=== PATIENT | male | born 1955 | race Caucasian/White ===

== ENCOUNTER 2018-12-05 11:24 | Inpatient (IN) | payer OTHER ==
[2018-12-05 13:44] VITALS: BMI 29.5
--- NOTE | 2018-12-05 15:37 | HP ---
CIWA Score Nausea/Vomitin Muscle Tremors: 3 Anxiety: 3 Agitation: 3 Paroxysmal Sweats: 1-Minimal Palms Moist Orientation: 0-Oriented Tacttile Disturbances: 0-None Auditory Disturbances: 0-None Visual Disturbances: 0-None Headache: 0-None Present CIWA-Ar Total Score: 13 - Admission Criteria OASAS Guidelines: Admission for Medically Managed Detox: Requires at least one of the followin. CIWA greater than 12 2. Seizures within the past 24 hours 3. Delirium tremens within the past 24 hours 4. Hallucinations within the past 24 hours 5. Acute intervention needed for co occurring medical disorder 6. Acute intervention needed for co occurring psychiatric disorder 7. Severe withdrawal that cannot be handled at a lower level of care (continued vomiting, continued diarrhea, abnormal vital signs) requiring intravenous medication and/or fluids 8. Admission ROS [facility] [place] [facility] [employer] [facility] Chief Complaint: detox from alcohol Allergies/Adverse Reactions: Allergies Allergy/AdvReac Type Severity Reaction Status Date / Time No Known Allergies Allergy Verified 12/05/18 13:25 History of Present Illness: Mr. Rush is a 63yo male with alcohol use disorder, UT s/p stent 2018, and HLD who presents for detox from alcohol. He reports drinking 1-1.5 pints liquor daily for the last 1-1.5 years. He reports drinking socially prior. His last reported drink was 8:00am today. He denies blackouts but may have had 1 seizure in the past. He denies any other drug use. Pt takes Ativan PRN for anxiety and tremors. He lives at home in [place] with . Pt reports tremors, agitation, dizziness, dry heaving. He denies chills, PEDROZA, diarrhea, and hallucinations. PMH: alcohol use disorder, UT s/p stent 2018, and HLD surgical hx: hernia, knee meds: Brillinta, ASA, metoprolol, Nexium, Lipitor, Flomax, ramipril NKDA family hx: father-alcohol use, mother-CHF - Ebola screening Have you traveled outside of the country in the last 21 days: No (N) Have you had contact with anyone from an Ebola affected area: No Do you have a fever: No - Review of Systems Constitutional: No Symptoms Reported, Weakness EENT: reports: No Symptoms Reported Respiratory: denies: Shortness of Breath Cardiac: denies: Chest Pain GI: denies: Nausea, Vomiting, Abdominal cramping : reports: No Symptoms Reported Musculoskeletal: reports: No Symptoms Reported Integumentary: reports: No Symptoms Reported Neuro: reports: Tingling, Dizziness. denies: Headache Endocrine: reports: No Symptoms Reported Hematology: reports: No Symptoms Reported Psychiatric: reports: Judgement Intact, Mood/Affect Appropiate, Orientated x3 Patient History - Patient Medical History Hx Asthma: No Hx Chronic Obstructive Pulmonary Disease (COPD): No Hx Congestive Heart Failure: No Hx Hypertension: No Hx Hypercholesterolemia: Yes HX Cerebrovascular Accident: No Hx Seizures: Yes Hx Diabetes: No - Patient Surgical History Hx Abdominal Surgery: Yes (hernia) Hx Orthopedic Surgery: Yes (knee) - Smoking Cessation Smoking history: Never smoked - Substances abused Alcohol Substance route: Oral Frequency: Daily Amount used: 1 1/2 pints of vodka Age of first use: 19 Date of last use: 12/05/18 Family Disease History - Family Disease History Family Disease History: Heart Disease: Mother, Other: Father (alcohol use disorder) Admission Physical Exam [facility] - Vital Signs Vital Signs: Vital Signs - 24 hr 12/05/18 13:19 Temperature 97.9 F Pulse Rate 119 H Respiratory 18 Rate Blood Pressure 109/74 - Physical General Appearance: Yes: No Apparent Distress, Alcohol on Breath, Irritable HEENTM: Yes: Normocephalic, JULITA Respiratory: Yes: Lungs Clear, No Respiratory Distress Neck: Yes: Within Normal Limits Cardiology: Yes: Regular Rhythm, Regular Rate Abdominal: Yes: Non Tender, Increased Bowel Sounds Musculoskeletal: Yes: Within Normal Limits Extremities: Yes: Within Normal Limits Neurological: Yes: information security officer II-XII NML intact, Fully Oriented, Alert, Motor Strength 5/5, Normal Mood/Affect Integumentary: Yes: Within Normal Limits - Diagnostic (1) Alcohol use disorder Current Visit: Yes Status: Chronic (2) Hyperlipidemia Current Visit: Yes Status: Chronic Qualifiers: Hyperlipidemia type: unspecified Qualified Code(s): E78.5 - Hyperlipidemia , unspecified (3) Myocardial infarct, old Current Visit: Yes Status: Chronic Cleared for Admission [facility] - Detox or Rehab [facility] Level of Care: Medically Managed Breathalyzer - Breathalyzer Breathalyzer: 0.204 Urine Drug Screen - Test Device Lot number: [id number] Expiration date: 09/19/20 - Control Is test valid?: Yes - Results Drug screen NEGATIVE: No Urine drug screen results: BZO-Benzodiazepines Inpatient Rehab Admission - Rehab Decision to Admit Inpatient rehab admission?: No
[2018-12-05] MEDS ORDERED: MENTHOL/PHENOL 1 EACH UD MM PRN (15:49)
[2018-12-05] MEDS ORDERED: BISMUTH SUBSALICYLATE 524 MG/30 ML UD PO PRN (15:49)
[2018-12-05] MEDS ORDERED: IBUPROFEN 400 MG TABLET (FP) PO PRN (15:49)
[2018-12-05] MEDS ORDERED: METHOCARBAMOL 500 MG TABLET PO PRN (15:49)
[2018-12-05] MEDS ORDERED: chlordiazePOXIDE HCL 25 MG CAPSULE PO PRN (15:49)
[2018-12-05] MEDS ORDERED: ACETAMINOPHEN 325 MG TABLET (FP) PO PRN ×2 (15:49)
[2018-12-05] MEDS ORDERED: MAGNESIUM CITRATE 300 ML BOTTLE PO PRN (15:49)
[2018-12-05] MEDS ORDERED: MAGNESIUM HYDROX 2400MG/30ML ORAL SUSPENSION 30 ML CUP PO PRN (15:49)
[2018-12-05] MEDS ORDERED: hydrOXYzine PAMOATE 25 MG CAPSULE (FP) PO PRN (15:49)
[2018-12-05] MEDS ORDERED: MAG HYDROX/AL HYDROX/SIMETH 30 ML UNIT-DOSE CUP PO PRN (15:49)
--- NOTE | 2018-12-05 15:58 | PN ---
Teaching Attending Note Name of Resident: Rufina Rose ATTENDING PHYSICIAN STATEMENT I saw and evaluated the patient. I reviewed the resident's note and discussed the case with the resident. I agree with the resident's findings and plan as documented. SUBJECTIVE: this 63 years old male with alcohol dependence,seeking detox,withdrawal symptom, has previous admission before, mi with stent 2018 OBJECTIVE: withdrawal signs and symptom Vital Signs Temperature 97.9 F 12/05/18 13:19 Pulse Rate 119 H 12/05/18 13:19 Respiratory Rate 18 12/05/18 13:19 Blood Pressure 109/74 12/05/18 13:19 O2 Sat by Pulse Oximetry (%) ASSESSMENT AND PLAN: this patient need inpatient detox from alcohol,medically managed,librium regimen ,plan for out patient program after detox
[2018-12-05] MEDS: chlordiazePOXIDE HCL 25 MG CAPSULE PO SCH ×2 (17:52→22:17)
[2018-12-05] MEDS: ATORVASTATIN CA 40 MG TABLET (FP) PO SCH (22:17)
[2018-12-05] MEDS: TICAGRELOR 90 MG TABLET PO SCH (22:17)
[2018-12-05] MEDS: THIAMINE HCL 100 MG TABLET (FP) PO SCH (22:17)
[2018-12-05] MEDS: MELATONIN 5 MG TABLETS PO PRN (22:17)
[2018-12-06] MEDS: chlordiazePOXIDE HCL 25 MG CAPSULE PO SCH ×4 (05:51→22:12)
[2018-12-06] MEDS: TICAGRELOR 90 MG TABLET PO SCH ×2 (10:15→22:11)
[2018-12-06] MEDS: PRENATAL VITAMINS W/ FOLIC ACID TABLET (FP) PO SCH (10:15)
[2018-12-06] MEDS: ASPIRIN COATED 81 MG TABLET.EC PO SCH (10:15)
[2018-12-06] MEDS: PANTOPRAZOLE 40 MG TABLET (FP) PO SCH (10:15)
[2018-12-06] MEDS: TAMSULOSIN HCL 0.4 MG CAP PO SCH (10:15)
[2018-12-06] MEDS: RAMIPRIL 5 MG CAPSULE (FP) PO SCH (10:16)
[2018-12-06 10:41] LABS: HEMATOCRIT 34.2 % (35.4-49); HEMOGLOBIN 11.7 GM/dL (11.7-16.9); MCH 32.4 pg (25.7-33.7); MCHC 34.2 g/dl (32.0-35.9); MEAN CELL VOLUME 94.7 fl (80-96); MEAN PLT VOLUME 8.3 fl (7.5-11.1); PLATELET COUNT 140 K/MM3 (134-434); RBC 3.62 M/mm3 (4.00-5.60); RDW 13.3 % (11.9-15.9)
[2018-12-06 10:56] LABS: ALBUMIN 3.8 g/dl (3.4-5.0); BLOOD UREA NITROGEN 19.9 mg/dL (7-18); CREATININE 1.2 mg/dL (0.55-1.3); POTASSIUM 3.6 mmol/L (3.5-5.1); TOT PROT 6.2 g/dl (6.4-8.2)
--- NOTE | 2018-12-06 11:25 | PN ---
S CIWA - CIWA Score Nausea/Vomitin-No Nausea/No Vomiting Muscle Tremors: 2 Anxiety: 3 Agitation: 0-Normal Activity Paroxysmal Sweats: 3 Orientation: 0-Oriented Tacttile Disturbances: 0-None Auditory Disturbances: 0-None Visual Disturbances: 0-None Headache: 2-Mild CIWA-Ar Total Score: 10 S Progress Note (SOAP) Subjective: c/o interrupted sleep, shakes, headache, and anxiety. Objective: 12/06/18 11:24 Vital Signs 12/06/18 12/06/18 12/06/18 03:30 06:51 09:35 Temperature 97.7 F 97.9 F Pulse Rate 67 71 Respiratory 17 18 18 Rate Blood Pressure 118/73 114/75 Lab Results WBC 3.0 K/mm3 (4.0-10.0) L 12/06/18 07:30 RBC 3.62 M/mm3 (4.00-5.60) L 12/06/18 07:30 Hgb 11.7 GM/dL (11.7-16.9) 12/06/18 07:30 Hct 34.2 % (35.4-49) L 12/06/18 07:30 MCV 94.7 fl (80-96) 12/06/18 07:30 MCHC 34.2 g/dl (32.0-35.9) 12/06/18 07:30 RDW 13.3 % (11.9-15.9) 12/06/18 07:30 Plt Count 140 K/MM3 (134-434) 12/06/18 07:30 Sodium 140 mmol/L (136-145) 12/06/18 07:30 Potassium 3.6 mmol/L (3.5-5.1) 12/06/18 07:30 Chloride 105 mmol/L (98-107) 12/06/18 07:30 Carbon Dioxide 27 mmol/L (21-32) 12/06/18 07:30 Anion Gap 8 MMOL/L (8-16) 12/06/18 07:30 BUN 19.9 mg/dL (7-18) H 12/06/18 07:30 Creatinine 1.2 mg/dL (0.55-1.3) 12/06/18 07:30 Random Glucose 110 mg/dL (74-106) H 12/06/18 07:30 Calcium 9.0 mg/dL (8.5-10.1) 12/06/18 07:30 Labs noted. Assessment: 12/06/18 11:25 AOX3, in no acute distress. Full ROM, ambulating in the unit. Withdrawal symptoms. Plan: continue detox.
[2018-12-06] MEDS: ATORVASTATIN CA 40 MG TABLET (FP) PO SCH (22:11)
[2018-12-06] MEDS: THIAMINE HCL 100 MG TABLET (FP) PO SCH (22:11)
[2018-12-06] MEDS: MELATONIN 5 MG TABLETS PO PRN (22:13)
[2018-12-07] MEDS: chlordiazePOXIDE HCL 25 MG CAPSULE PO SCH ×4 (06:56→22:06)
[2018-12-07] MEDS: ASPIRIN COATED 81 MG TABLET.EC PO SCH (10:34)
[2018-12-07] MEDS: TAMSULOSIN HCL 0.4 MG CAP PO SCH (10:34)
[2018-12-07] MEDS: RAMIPRIL 5 MG CAPSULE (FP) PO SCH (10:34)
[2018-12-07] MEDS: PRENATAL VITAMINS W/ FOLIC ACID TABLET (FP) PO SCH (10:34)
[2018-12-07] MEDS: PANTOPRAZOLE 40 MG TABLET (FP) PO SCH (10:34)
[2018-12-07] MEDS: TICAGRELOR 90 MG TABLET PO SCH ×2 (10:34→22:06)
--- NOTE | 2018-12-07 11:40 | EKG ---
Test Reason : Blood Pressure : / mmHG Vent. Rate : 074 BPM Atrial Rate : 074 BPM P-R Int : 160 ms QRS Dur : 090 ms QT Int : 380 ms P-R-T Axes : 041 029 058 degrees QTc Int : 421 ms NORMAL SINUS RHYTHM CANNOT RULE OUT ANTERIOR INFARCT , AGE UNDETERMINED ABNORMAL ECG NO PREVIOUS ECGS AVAILABLE Confirmed by GIO IVERSON MD ([id number]) on 12/07/2018 11:40:00 AM Referred By: Confirmed By:GIO IVERSON MD
--- NOTE | 2018-12-07 13:06 | PN ---
S CIWA - CIWA Score Nausea/Vomitin-No Nausea/No Vomiting Muscle Tremors: 3 Anxiety: 3 Agitation: 3 Paroxysmal Sweats: 3 Orientation: 0-Oriented Tacttile Disturbances: 0-None Auditory Disturbances: 0-None Visual Disturbances: 0-None Headache: 0-None Present CIWA-Ar Total Score: 12 S Progress Note (SOAP) Subjective: sweats shakes interrupted sleep Objective: 12/07/18 13:08 Vital Signs Temperature 97.5 F L 12/07/18 09:52 Pulse Rate 95 H 12/07/18 09:52 Respiratory Rate 18 12/07/18 09:52 Blood Pressure 113/66 12/07/18 09:52 O2 Sat by Pulse Oximetry (%) Laboratory Tests 12/06/18 12/06/18 12/06/18 07:30 07:30 07:30 WBC 3.0 L RBC 3.62 L Hgb 11.7 Hct 34.2 L MCV 94.7 MCH 32.4 MCHC 34.2 RDW 13.3 Plt Count 140 MPV 8.3 Sodium 140 Potassium 3.6 Chloride 105 Carbon Dioxide 27 Anion Gap 8 BUN 19.9 H Creatinine 1.2 Est GFR (CKD-EPI)AfAm 74.66 Est GFR (CKD-EPI)NonAf 64.42 Random Glucose 110 H Calcium 9.0 Total Bilirubin 1.0 AST 114 H ALT 96 H Alkaline Phosphatase 56 Total Protein 6.2 L Albumin 3.8 RPR Titer Nonreactive labs noted aaox3 ambulating no acute distress Assessment: 12/07/18 13:09 withdrawal sx Plan: continue detox increase fluids
[2018-12-07] MEDS: THIAMINE HCL 100 MG TABLET (FP) PO SCH (22:06)
[2018-12-07] MEDS: ATORVASTATIN CA 40 MG TABLET (FP) PO SCH (22:06)
[2018-12-07] MEDS: MELATONIN 5 MG TABLETS PO PRN (22:25)
[2018-12-08] MEDS ORDERED: chlordiazePOXIDE HCL 10 MG CAPSULE PO PRN
[2018-12-08] MEDS: chlordiazePOXIDE HCL 10 MG CAPSULE PO SCH ×4 (06:01→22:17)
[2018-12-08] MEDS: TAMSULOSIN HCL 0.4 MG CAP PO SCH (10:14)
[2018-12-08] MEDS: PRENATAL VITAMINS W/ FOLIC ACID TABLET (FP) PO SCH (10:14)
[2018-12-08] MEDS: ASPIRIN COATED 81 MG TABLET.EC PO SCH (10:14)
[2018-12-08] MEDS: PANTOPRAZOLE 40 MG TABLET (FP) PO SCH (10:14)
[2018-12-08] MEDS: TICAGRELOR 90 MG TABLET PO SCH ×2 (10:15→22:17)
[2018-12-08] MEDS: RAMIPRIL 5 MG CAPSULE (FP) PO SCH (10:20)
--- NOTE | 2018-12-08 17:18 | PN ---
S CIWA - CIWA Score Nausea/Vomitin-No Nausea/No Vomiting Muscle Tremors: 2 Anxiety: 2 Agitation: 1-Slight > Activity Paroxysmal Sweats: No Perspiration Orientation: 0-Oriented Tacttile Disturbances: 0-None Auditory Disturbances: 2-Mild Harshness/Frighten Visual Disturbances: 0-None Headache: 0-None Present CIWA-Ar Total Score: 7 BHS Progress Note (SOAP) Subjective: Anxious, Tremors. Objective: PATIENT A & O X 3, OBSERVED AMBULATING ON UNIT UNASSISTED. IN NO ACUTE DISTRESS. 12/08/18 17:13 Vital Signs Temperature 97.4 F L 12/08/18 09:34 Pulse Rate 58 L 12/08/18 09:34 Respiratory Rate 18 12/08/18 09:34 Blood Pressure 116/76 12/08/18 09:34 O2 Sat by Pulse Oximetry (%) Laboratory Tests 12/06/18 12/06/18 12/06/18 07:30 07:30 07:30 WBC 3.0 L RBC 3.62 L Hgb 11.7 Hct 34.2 L MCV 94.7 MCH 32.4 MCHC 34.2 RDW 13.3 Plt Count 140 MPV 8.3 Sodium 140 Potassium 3.6 Chloride 105 Carbon Dioxide 27 Anion Gap 8 BUN 19.9 H Creatinine 1.2 Est GFR (CKD-EPI)AfAm 74.66 Est GFR (CKD-EPI)NonAf 64.42 Random Glucose 110 H Calcium 9.0 Total Bilirubin 1.0 AST 114 H ALT 96 H Alkaline Phosphatase 56 Total Protein 6.2 L Albumin 3.8 RPR Titer Nonreactive LABS NOTED Assessment: 12/08/18 17:16 WITHDRAWAL SYMPTOMS. ELEVATED AST LEVEL. ELEVATED ALT LEVEL. LEUKOPENIA. ANEMIA. 12/08/18 17:18 Plan: CONTINUE DETOX. PATIENT IS CURRENTLY RECEIVING DAILY MVI CONTAINING B VITAMINS AND IRON WHILE ADMITTED FOR DETOX.
[2018-12-08] MEDS: ATORVASTATIN CA 40 MG TABLET (FP) PO SCH (22:17)
[2018-12-08] MEDS: THIAMINE HCL 100 MG TABLET (FP) PO SCH (22:17)
[2018-12-08] MEDS: MELATONIN 5 MG TABLETS PO PRN (22:17)
[2018-12-09] MEDS: chlordiazePOXIDE HCL 10 MG CAPSULE PO SCH ×2 (06:11→18:01)
[2018-12-09] MEDS: PANTOPRAZOLE 40 MG TABLET (FP) PO SCH (09:40)
[2018-12-09] MEDS: RAMIPRIL 5 MG CAPSULE (FP) PO SCH (09:40)
[2018-12-09] MEDS: TAMSULOSIN HCL 0.4 MG CAP PO SCH (09:40)
[2018-12-09] MEDS: PRENATAL VITAMINS W/ FOLIC ACID TABLET (FP) PO SCH (09:40)
[2018-12-09] MEDS: TICAGRELOR 90 MG TABLET PO SCH ×2 (09:40→22:09)
[2018-12-09] MEDS: ASPIRIN COATED 81 MG TABLET.EC PO SCH (09:40)
--- NOTE | 2018-12-09 12:29 | PN ---
[facility] CIWA - CIWA Score Nausea/Vomitin-Mild Nausea/No Vomiting Muscle Tremors: 1-None Visible, but Nerinx Anxiety: 2 Agitation: 3 Paroxysmal Sweats: No Perspiration Orientation: 0-Oriented Tacttile Disturbances: 1-Very Mild Itch/Numbness Auditory Disturbances: 0-None Visual Disturbances: 0-None Headache: 1-Very Mild CIWA-Ar Total Score: 9 BHS Progress Note (SOAP) Subjective: alert,irritable,anxious,interrupted sleep Objective: 12/09/18 12:28 Vital Signs Temperature 97.0 F L 12/09/18 09:32 Pulse Rate 81 12/09/18 09:32 Respiratory Rate 18 12/09/18 09:32 Blood Pressure 144/83 12/09/18 09:32 O2 Sat by Pulse Oximetry (%) Assessment: 12/09/18 12:28 withdrawal symptom Plan: continue detox librium regimen,discharge in am
[2018-12-09] MEDS: ATORVASTATIN CA 40 MG TABLET (FP) PO SCH (22:10)
[2018-12-09] MEDS: THIAMINE HCL 100 MG TABLET (FP) PO SCH (22:10)
[2018-12-09] MEDS: MELATONIN 5 MG TABLETS PO PRN (22:10)
[2018-12-10] MEDS ORDERED: chlordiazePOXIDE HCL 10 MG CAPSULE PO ONE (05:00)
[2018-12-10 07:49] VITALS: BP 127/67; PULSE 65; TEMP 96.1
--- NOTE | 2018-12-10 09:03 | DS ---
[facility] Detox Discharge Summary Admission Date: 12/05/18 Discharge Date: 12/10/18 - History Present History: Alcohol Dependence - Physical Exam Results Vital Signs: Vital Signs Temperature 96.1 F L 12/10/18 07:49 Pulse Rate 65 12/10/18 07:49 Respiratory Rate 18 12/10/18 07:49 Blood Pressure 127/67 12/10/18 07:49 O2 Sat by Pulse Oximetry (%) Pertinent Admission Physical Exam Findings: pt arrived in withdrawals Laboratory Tests 12/06/18 12/06/18 12/06/18 07:30 07:30 07:30 WBC 3.0 L RBC 3.62 L Hgb 11.7 Hct 34.2 L MCV 94.7 MCH 32.4 MCHC 34.2 RDW 13.3 Plt Count 140 MPV 8.3 Sodium 140 Potassium 3.6 Chloride 105 Carbon Dioxide 27 Anion Gap 8 BUN 19.9 H Creatinine 1.2 Est GFR (CKD-EPI)AfAm 74.66 Est GFR (CKD-EPI)NonAf 64.42 Random Glucose 110 H Calcium 9.0 Total Bilirubin 1.0 AST 114 H ALT 96 H Alkaline Phosphatase 56 Total Protein 6.2 L Albumin 3.8 RPR Titer Nonreactive today pt is aaox3 ambulating no acute distress no s/s of withdrawals - Treatment Hospital Course: Detox Protocol Followed, Detoxed Safely, Responded well, Discharged Condition Good, Rehab Referral Accepted Patient has Accepted a Rehab Referral to: pt declined rehab; referral provided - Medication Discharge Medications: Ambulatory Orders Aspirin [Aspirin EC] 81 mg PO DAILY 12/05/18 Atorvastatin Ca [Lipitor] 40 mg PO HS 12/05/18 Esomeprazole Magnesium 40 mg PO DAILY 12/05/18 Folic Acid 1 mg PO DAILY 12/05/18 Lorazepam [Ativan] 0.5 mg PO TID PRN 12/05/18 Metoprolol Succinate 50 mg PO DAILY 12/05/18 Ramipril 5 mg PO DAILY 12/05/18 Tamsulosin HCl 0.4 mg PO DAILY 12/05/18 Ticagrelor [Brilinta] 90 mg PO BID 12/05/18 - Diagnosis (1) Alcohol use disorder Current Visit: Yes Status: Chronic (2) Hyperlipidemia Current Visit: Yes Status: Chronic Qualifiers: Hyperlipidemia type: unspecified Qualified Code(s): E78.5 - Hyperlipidemia , unspecified (3) Myocardial infarct, old Current Visit: Yes Status: Chronic - AMA Did Patient Leave Against Medical Advice: No
== END 2018-12-10 09:13 | disposition home or self-care (01) | DRG 775 ==
LOC: YASAS 11:24 → Y6N 16:38
PROVIDERS: ADMIT Surgery; ATTEND Surgery
PROC: HZ2ZZZZ Detoxification Services for Substance Abuse Treatment (ICD-10-PCS; principal; 2018-12-05)
DX: F10.230 Alcohol dependence with withdrawal, uncomplicated (principal); E78.5 Hyperlipidemia, unspecified; I25.2 Old myocardial infarction; R74.0 Nonspecific elevation of levels of transaminase and lactic acid dehydrogenase [LDH]; D72.819 Decreased white blood cell count, unspecified; D64.9 Anemia, unspecified
CPT/HCPCS: 36415; 80053; 85027; 86480; 86593; 93005; 93010

== ENCOUNTER 2020-07-22 08:15 | Inpatient (IN) | payer OTHER ==
[2020-07-22 09:18] VITALS: BMI 31.1
[2020-07-22] MEDS ORDERED: BISMUTH SUBSALICYLATE 262 MG/15 ML BTL PO PRN (09:40)
[2020-07-22] MEDS ORDERED: MAGNESIUM HYDROX 2400MG/30ML ORAL SUSPENSION 30 ML CUP PO PRN (09:40)
[2020-07-22] MEDS ORDERED: METHOCARBAMOL 500 MG TABLET PO PRN (09:40)
[2020-07-22] MEDS ORDERED: IBUPROFEN 400 MG TABLET (FP) PO PRN (09:40)
[2020-07-22] MEDS ORDERED: ONDANSETRON *ODT* 4 MG TABLET SL PRN (09:40)
[2020-07-22] MEDS ORDERED: chlordiazePOXIDE HCL 25 MG CAPSULE PO PRN (09:40)
[2020-07-22] MEDS ORDERED: MENTHOL/PHENOL 1 EACH UD MM PRN (09:40)
[2020-07-22] MEDS ORDERED: ACETAMINOPHEN 325 MG TABLET (FP) PO PRN ×2 (09:40)
[2020-07-22] MEDS ORDERED: MAGNESIUM CITRATE 300 ML BOTTLE PO PRN (09:40)
[2020-07-22] MEDS: ASPIRIN COATED 81 MG TABLET.EC PO SCH (12:11)
[2020-07-22] MEDS: TAMSULOSIN HCL 0.4 MG CAP PO SCH (12:11)
[2020-07-22] MEDS: RAMIPRIL 5 MG CAPSULE PO SCH (12:11)
[2020-07-22] MEDS: hydrOXYzine PAMOATE 25 MG CAPSULE (FP) PO SCH ×4 (12:11→22:18)
[2020-07-22] MEDS: PANTOPRAZOLE 40 MG TABLET PO SCH (12:12)
[2020-07-22] MEDS: chlordiazePOXIDE HCL 25 MG CAPSULE PO SCH ×3 (12:12→22:18)
[2020-07-22] MEDS: PRENATAL VITAMINS W/ FOLIC ACID TABLET (FP) PO SCH (12:14)
[2020-07-22 14:47] LABS: HEMATOCRIT 37.6 % (35.4-49); HEMOGLOBIN 12.8 GM/dL (11.7-16.9); MCH 32.6 pg (25.7-33.7); MCHC 34.1 g/dl (32.0-35.9); MEAN CELL VOLUME 95.6 fl (80-96); MEAN PLT VOLUME 8.5 fl (7.5-11.1); PLATELET COUNT 161 K/MM3 (134-434); POTASSIUM 3.8 mmol/L (3.5-5.1); RBC 3.93 M/mm3 (4.00-5.60); RDW 13.8 % (11.9-15.9); WHITE BLOOD COUNT 4.5 K/mm3 (4.0-10.0)
[2020-07-22 14:50] LABS: BLOOD UREA NITROGEN 16.8 mg/dL (7-18); CALCIUM 9.6 mg/dL (8.5-10.1)
[2020-07-22 14:51] LABS: ALBUMIN 3.6 g/dl (3.4-5.0)
[2020-07-22 14:55] LABS: CREATININE 0.9 mg/dL (0.55-1.3)
[2020-07-22 14:56] LABS: BILIRUBIN,TOTAL 0.9 mg/dL (0.2-1); TOT PROT 6.8 g/dl (6.4-8.2)
[2020-07-22] MEDS: ATORVASTATIN CA 40 MG TABLET (FP) PO SCH (22:18)
[2020-07-22] MEDS: THIAMINE HCL 100 MG TABLET (FP) PO SCH (22:18)
[2020-07-22] MEDS: MELATONIN 5 MG TABLETS PO SCH (22:18)
[2020-07-23] MEDS: hydrOXYzine PAMOATE 25 MG CAPSULE (FP) PO SCH ×5 (06:47→22:06)
[2020-07-23] MEDS: chlordiazePOXIDE HCL 25 MG CAPSULE PO SCH ×4 (06:47→22:06)
[2020-07-23] MEDS: TAMSULOSIN HCL 0.4 MG CAP PO SCH (09:25)
[2020-07-23] MEDS: PANTOPRAZOLE 40 MG TABLET PO SCH (10:25)
[2020-07-23] MEDS: PRENATAL VITAMINS W/ FOLIC ACID TABLET (FP) PO SCH (10:25)
[2020-07-23] MEDS: ASPIRIN COATED 81 MG TABLET.EC PO SCH (10:25)
[2020-07-23] MEDS: RAMIPRIL 5 MG CAPSULE PO SCH (10:25)
[2020-07-23] MEDS: ATORVASTATIN CA 40 MG TABLET (FP) PO SCH (22:06)
[2020-07-23] MEDS: MELATONIN 5 MG TABLETS PO SCH (22:06)
[2020-07-23] MEDS: THIAMINE HCL 100 MG TABLET (FP) PO SCH (22:06)
[2020-07-24] MEDS: hydrOXYzine PAMOATE 25 MG CAPSULE (FP) PO SCH ×5 (05:23→22:23)
[2020-07-24] MEDS: chlordiazePOXIDE HCL 25 MG CAPSULE PO SCH ×4 (05:23→22:23)
[2020-07-24] MEDS: TAMSULOSIN HCL 0.4 MG CAP PO SCH (08:43)
[2020-07-24] MEDS: ASPIRIN COATED 81 MG TABLET.EC PO SCH (10:09)
[2020-07-24] MEDS: PANTOPRAZOLE 40 MG TABLET PO SCH (10:10)
[2020-07-24] MEDS: RAMIPRIL 5 MG CAPSULE PO SCH (10:10)
[2020-07-24] MEDS: MAG HYDROX/AL HYDROX/SIMETH 30 ML UNIT-DOSE CUP PO PRN (10:13)
[2020-07-24] MEDS: PRENATAL VITAMINS W/ FOLIC ACID TABLET (FP) PO SCH (10:14)
[2020-07-24] MEDS: ATORVASTATIN CA 40 MG TABLET (FP) PO SCH (22:23)
[2020-07-24] MEDS: THIAMINE HCL 100 MG TABLET (FP) PO SCH (22:23)
[2020-07-24] MEDS: MELATONIN 5 MG TABLETS PO SCH (22:23)
[2020-07-25] MEDS ORDERED: chlordiazePOXIDE HCL 10 MG CAPSULE PO PRN
[2020-07-25] MEDS: chlordiazePOXIDE HCL 10 MG CAPSULE PO SCH ×4 (05:21→22:06)
[2020-07-25] MEDS: hydrOXYzine PAMOATE 25 MG CAPSULE (FP) PO SCH ×5 (05:22→22:06)
[2020-07-25 07:11] LABS: SARS-CoV-2 NAA Not Detected (Not Detected)
[2020-07-25] MEDS: ASPIRIN COATED 81 MG TABLET.EC PO SCH (10:31)
[2020-07-25] MEDS: PRENATAL VITAMINS W/ FOLIC ACID TABLET (FP) PO SCH (10:31)
[2020-07-25] MEDS: TAMSULOSIN HCL 0.4 MG CAP PO SCH (10:31)
[2020-07-25] MEDS: PANTOPRAZOLE 40 MG TABLET PO SCH (10:31)
[2020-07-25] MEDS: RAMIPRIL 5 MG CAPSULE PO SCH (10:31)
[2020-07-25] MEDS: ATORVASTATIN CA 40 MG TABLET (FP) PO SCH (22:06)
[2020-07-25] MEDS: MELATONIN 5 MG TABLETS PO SCH (22:06)
[2020-07-25] MEDS: THIAMINE HCL 100 MG TABLET (FP) PO SCH (22:06)
[2020-07-26] MEDS: chlordiazePOXIDE HCL 10 MG CAPSULE PO SCH ×2 (05:46→17:35)
[2020-07-26] MEDS: hydrOXYzine PAMOATE 25 MG CAPSULE (FP) PO SCH ×5 (05:46→21:34)
[2020-07-26] MEDS: PRENATAL VITAMINS W/ FOLIC ACID TABLET (FP) PO SCH (09:42)
[2020-07-26] MEDS: PANTOPRAZOLE 40 MG TABLET PO SCH (09:42)
[2020-07-26] MEDS: RAMIPRIL 5 MG CAPSULE PO SCH (09:42)
[2020-07-26] MEDS: ASPIRIN COATED 81 MG TABLET.EC PO SCH (09:43)
[2020-07-26] MEDS: TAMSULOSIN HCL 0.4 MG CAP PO SCH (09:43)
[2020-07-26] MEDS: MELATONIN 5 MG TABLETS PO SCH (21:34)
[2020-07-26] MEDS: ATORVASTATIN CA 40 MG TABLET (FP) PO SCH (21:34)
[2020-07-26] MEDS: THIAMINE HCL 100 MG TABLET (FP) PO SCH (21:34)
[2020-07-27] MEDS ORDERED: chlordiazePOXIDE HCL 10 MG CAPSULE PO ONE (05:00)
[2020-07-27] MEDS: hydrOXYzine PAMOATE 25 MG CAPSULE (FP) PO SCH ×2 (05:24→10:06)
[2020-07-27] MEDS: MAG HYDROX/AL HYDROX/SIMETH 30 ML UNIT-DOSE CUP PO PRN (06:15)
[2020-07-27 08:51] VITALS: BP 128/65; PULSE 70; TEMP 96.9
[2020-07-27] MEDS: ASPIRIN COATED 81 MG TABLET.EC PO SCH (10:06)
[2020-07-27] MEDS: PRENATAL VITAMINS W/ FOLIC ACID TABLET (FP) PO SCH (10:06)
[2020-07-27] MEDS: TAMSULOSIN HCL 0.4 MG CAP PO SCH (10:06)
[2020-07-27] MEDS: RAMIPRIL 5 MG CAPSULE PO SCH (10:06)
[2020-07-27] MEDS: PANTOPRAZOLE 40 MG TABLET PO SCH (10:06)
== END 2020-07-27 08:49 | disposition home or self-care (01) | DRG 775 ==
LOC: YASAS 08:15 → UNDOADMIN 09:46 → Y3N 09:46
PROVIDERS: ADMIT Allergy & Immunology; ATTEND Allergy & Immunology
PROC: HZ2ZZZZ Detoxification Services for Substance Abuse Treatment (ICD-10-PCS; principal; 2020-07-22)
DX: F10.230 Alcohol dependence with withdrawal, uncomplicated (principal); E78.5 Hyperlipidemia, unspecified; I25.10 Atherosclerotic heart disease of native coronary artery without angina pectoris; I25.2 Old myocardial infarction; K21.9 Gastro-esophageal reflux disease without esophagitis; N40.0 Benign prostatic hyperplasia without lower urinary tract symptoms; R10.32 Left lower quadrant pain
CPT/HCPCS: 36415; 80053; 82947; 85027; 86780; C9803; U0003; U0005

== ENCOUNTER 2020-09-14 08:11 | Inpatient (IN) | payer OTHER ==
[2020-09-14 09:14] VITALS: BMI 31.3
[2020-09-14] MEDS ORDERED: MAG HYDROX/AL HYDROX/SIMETH 30 ML UNIT-DOSE CUP PO PRN (09:15)
[2020-09-14] MEDS ORDERED: METHOCARBAMOL 500 MG TABLET PO PRN (09:15)
[2020-09-14] MEDS ORDERED: BISMUTH SUBSALICYLATE 524 MG/30 ML PO PRN (09:15)
[2020-09-14] MEDS ORDERED: MENTHOL/PHENOL 1 EACH UD MM PRN (09:15)
[2020-09-14] MEDS ORDERED: MAGNESIUM CITRATE 300 ML BOTTLE PO PRN (09:15)
[2020-09-14] MEDS ORDERED: ACETAMINOPHEN 325 MG TABLET (FP) PO PRN ×2 (09:15)
[2020-09-14] MEDS ORDERED: ONDANSETRON *ODT* 4 MG TABLET SL PRN (09:15)
[2020-09-14] MEDS ORDERED: IBUPROFEN 400 MG TABLET (FP) PO PRN (09:15)
[2020-09-14] MEDS ORDERED: MAGNESIUM HYDROX 2400MG/30ML ORAL SUSPENSION 30 ML CUP PO PRN (09:15)
[2020-09-14] MEDS ORDERED: diazePAM 5 MG TABLET PO PRN (09:15)
[2020-09-14] MEDS ORDERED: ASPIRIN COATED 81 MG TABLET.EC PO SCH (10:00)
[2020-09-14] MEDS: ATORVASTATIN CA 40 MG TABLET (FP) PO SCH (11:11)
[2020-09-14] MEDS: diazePAM 5 MG TABLET PO SCH ×3 (11:12→22:37)
[2020-09-14] MEDS: PRENATAL VITAMINS W/ FOLIC ACID TABLET (FP) PO SCH (11:12)
[2020-09-14] MEDS: TAMSULOSIN HCL 0.4 MG CAP PO SCH (11:12)
[2020-09-14] MEDS: hydrOXYzine PAMOATE 25 MG CAPSULE (FP) PO SCH ×4 (11:12→22:37)
[2020-09-14] MEDS: PANTOPRAZOLE 40 MG TABLET PO SCH (11:12)
[2020-09-14] MEDS: RAMIPRIL 5 MG CAPSULE PO SCH (11:47)
[2020-09-14 14:25] LABS: HEMATOCRIT 43.6 % (35.4-49); HEMOGLOBIN 14.7 GM/dL (11.7-16.9); MCH 31.5 pg (25.7-33.7); MCHC 33.7 g/dl (32.0-35.9); MEAN CELL VOLUME 93.4 fl (80-96); MEAN PLT VOLUME 8.3 fl (7.5-11.1); PLATELET COUNT 161 K/MM3 (134-434); RBC 4.67 M/mm3 (4.00-5.60); RDW 14.1 % (11.9-15.9); WHITE BLOOD COUNT 5.3 K/mm3 (4.0-10.0)
[2020-09-14 14:30] LABS: ALBUMIN 4.4 g/dl (3.4-5.0); CALCIUM 9.9 mg/dL (8.5-10.1)
[2020-09-14 14:31] LABS: BLOOD UREA NITROGEN 10.2 mg/dL (7-18)
[2020-09-14 14:33] LABS: CREATININE 0.9 mg/dL (0.55-1.3)
[2020-09-14 14:34] LABS: BILIRUBIN,TOTAL 0.7 mg/dL (0.2-1); TOT PROT 7.5 g/dl (6.4-8.2)
[2020-09-14] MEDS: MELATONIN 5 MG TABLETS PO SCH (22:36)
[2020-09-14] MEDS: THIAMINE HCL 100 MG TABLET (FP) PO SCH (22:37)
[2020-09-15] MEDS: hydrOXYzine PAMOATE 25 MG CAPSULE (FP) PO SCH ×5 (05:41→22:14)
[2020-09-15] MEDS: diazePAM 5 MG TABLET PO SCH ×4 (05:41→22:14)
[2020-09-15] MEDS: TAMSULOSIN HCL 0.4 MG CAP PO SCH (07:30)
[2020-09-15] MEDS: PANTOPRAZOLE 40 MG TABLET PO SCH (10:05)
[2020-09-15] MEDS: RAMIPRIL 5 MG CAPSULE PO SCH (10:05)
[2020-09-15] MEDS: ATORVASTATIN CA 40 MG TABLET (FP) PO SCH (10:05)
[2020-09-15] MEDS: PRENATAL VITAMINS W/ FOLIC ACID TABLET (FP) PO SCH (10:06)
[2020-09-15] MEDS: MELATONIN 5 MG TABLETS PO SCH (22:13)
[2020-09-15] MEDS: THIAMINE HCL 100 MG TABLET (FP) PO SCH (22:14)
[2020-09-16] MEDS: diazePAM 5 MG TABLET PO SCH ×3 (05:33→22:14)
[2020-09-16] MEDS: hydrOXYzine PAMOATE 25 MG CAPSULE (FP) PO SCH ×5 (05:34→22:14)
[2020-09-16] MEDS: ATORVASTATIN CA 40 MG TABLET (FP) PO SCH (10:09)
[2020-09-16] MEDS: PRENATAL VITAMINS W/ FOLIC ACID TABLET (FP) PO SCH (10:09)
[2020-09-16] MEDS: RAMIPRIL 5 MG CAPSULE PO SCH (10:09)
[2020-09-16] MEDS: PANTOPRAZOLE 40 MG TABLET PO SCH (10:09)
[2020-09-16] MEDS: TAMSULOSIN HCL 0.4 MG CAP PO SCH (10:09)
[2020-09-16] MEDS: THIAMINE HCL 100 MG TABLET (FP) PO SCH (22:14)
[2020-09-16] MEDS: MELATONIN 5 MG TABLETS PO SCH (22:14)
[2020-09-17] MEDS: diazePAM 5 MG TABLET PO SCH ×2 (05:48→18:30)
[2020-09-17] MEDS: hydrOXYzine PAMOATE 25 MG CAPSULE (FP) PO SCH ×5 (05:48→22:45)
[2020-09-17] MEDS: PRENATAL VITAMINS W/ FOLIC ACID TABLET (FP) PO SCH (10:19)
[2020-09-17] MEDS: RAMIPRIL 5 MG CAPSULE PO SCH (10:19)
[2020-09-17] MEDS: TAMSULOSIN HCL 0.4 MG CAP PO SCH (10:19)
[2020-09-17] MEDS: ATORVASTATIN CA 40 MG TABLET (FP) PO SCH (10:19)
[2020-09-17] MEDS: PANTOPRAZOLE 40 MG TABLET PO SCH (10:19)
[2020-09-17] MEDS: THIAMINE HCL 100 MG TABLET (FP) PO SCH (22:45)
[2020-09-17] MEDS: MELATONIN 5 MG TABLETS PO SCH (22:45)
[2020-09-18] MEDS ORDERED: diazePAM 5 MG TABLET PO ONE (06:00)
[2020-09-18] MEDS: hydrOXYzine PAMOATE 25 MG CAPSULE (FP) PO SCH (06:02)
[2020-09-18 07:18] VITALS: BP 142/90; PULSE 72; TEMP 9697.1
== END 2020-09-18 09:50 | disposition home or self-care (01) | DRG 775 ==
LOC: YASAS 08:11 → Y6N 10:21
PROVIDERS: ADMIT Allergy & Immunology; ATTEND Allergy & Immunology
PROC: HZ2ZZZZ Detoxification Services for Substance Abuse Treatment (ICD-10-PCS; principal; 2020-09-14)
DX: F10.230 Alcohol dependence with withdrawal, uncomplicated (principal); E78.5 Hyperlipidemia, unspecified; I25.10 Atherosclerotic heart disease of native coronary artery without angina pectoris; I10 Essential (primary) hypertension; Z95.1 Presence of aortocoronary bypass graft; I25.2 Old myocardial infarction; K21.9 Gastro-esophageal reflux disease without esophagitis; K92.1 Melena; N40.0 Benign prostatic hyperplasia without lower urinary tract symptoms; R74.01 Elevation of levels of liver transaminase levels
CPT/HCPCS: 36415; 80053; 82272; 84450; 85027; 86780; 86803; C9803; U0003; U0005

== ENCOUNTER 2021-02-16 08:40 | Inpatient (IN) | payer OTHER ==
[2021-02-16 09:14] VITALS: BMI 30.2
[2021-02-16] MEDS ORDERED: diazePAM 5 MG TABLET PO PRN (09:35)
[2021-02-16] MEDS ORDERED: NICOTINE 10 MG CARTRIDGE (INHALER) IH PRN (09:35)
[2021-02-16] MEDS ORDERED: ONDANSETRON *ODT* 4 MG TABLET SL PRN (09:35)
[2021-02-16] MEDS ORDERED: METHOCARBAMOL 500 MG TABLET PO PRN (09:35)
[2021-02-16] MEDS ORDERED: MAGNESIUM CITRATE 300 ML BOTTLE PO PRN (09:35)
[2021-02-16] MEDS ORDERED: ACETAMINOPHEN 325 MG TABLET (FP) PO PRN ×2 (09:35)
[2021-02-16] MEDS ORDERED: IBUPROFEN 400 MG TABLET (FP) PO PRN (09:35)
[2021-02-16] MEDS ORDERED: BISMUTH SUBSALICYLATE 262 MG/15 ML BTL PO PRN (09:35)
[2021-02-16] MEDS ORDERED: MENTHOL/PHENOL 1 EACH UD MM PRN (09:35)
[2021-02-16] MEDS ORDERED: PRENATAL VITAMINS W/ FOLIC ACID TABLET (FP) PO SCH (10:00)
[2021-02-16] MEDS: hydrOXYzine PAMOATE 25 MG CAPSULE (FP) PO SCH ×4 (11:27→21:51)
[2021-02-16] MEDS: diazePAM 5 MG TABLET PO SCH ×3 (11:27→22:00)
[2021-02-16] MEDS: NICOTINE 14 MG/24 HOURS TOPICAL PATCH TD SCH (11:29)
[2021-02-16 14:58] LABS: CALCIUM 9.2 mg/dL (8.5-10.1)
[2021-02-16 14:59] LABS: BLOOD UREA NITROGEN 17.1 mg/dL (7-18); HEMOGLOBIN 14.7 GM/dL (11.7-16.9); MCH 32.5 pg (25.7-33.7); MEAN CELL VOLUME 92.8 fl (80-96); MEAN PLT VOLUME 7.3 fl (7.5-11.1); PLATELET COUNT 149 10^3/uL (134-434); RBC 4.53 M/mm3 (4.00-5.60); RDW 14.5 % (11.9-15.9); WHITE BLOOD COUNT 6.3 K/mm3 (4.0-10.0)
[2021-02-16 15:01] LABS: CREATININE 0.9 mg/dL (0.55-1.3)
[2021-02-16 15:03] LABS: BILIRUBIN,TOTAL 0.9 mg/dL (0.2-1); TOT PROT 7.4 g/dl (6.4-8.2)
[2021-02-16] MEDS: METOPROLOL SUCCINATE 50 MG PO SCH (16:26)
[2021-02-16] MEDS: ASPIRIN 81 MG PO SCH (16:26)
[2021-02-16] MEDS: ATORVASTATIN CA 40 MG PO SCH (16:26)
[2021-02-16] MEDS: FOLIC PO SCH (16:27)
[2021-02-16] MEDS: TAMSULOSIN HCL 0.4 MG PO SCH (16:27)
[2021-02-16] MEDS: [UNRECOGNIZED DRUG - OTHER] PO SCH (16:27)
[2021-02-16] MEDS: GINKGO PO SCH (16:27)
[2021-02-16] MEDS: LYCOPENE PO SCH (16:27)
[2021-02-16] MEDS: RAMIPRIL 5 MG PO SCH (16:27)
[2021-02-16] MEDS: MV MINS PO SCH (16:27)
[2021-02-16] MEDS: MAG HYDROX/AL HYDROX/SIMETH 30 ML UNIT-DOSE CUP PO PRN (17:02)
[2021-02-16] MEDS: MELATONIN 5 MG TABLETS PO SCH (21:51)
[2021-02-16] MEDS: THIAMINE HCL 100 MG TABLET (FP) PO SCH (21:51)
[2021-02-17] MEDS: diazePAM 5 MG TABLET PO SCH ×2 (05:32→10:11)
[2021-02-17] MEDS: hydrOXYzine PAMOATE 25 MG CAPSULE (FP) PO SCH ×5 (05:32→22:06)
[2021-02-17] MEDS: MAG HYDROX/AL HYDROX/SIMETH 30 ML UNIT-DOSE CUP PO PRN (05:35)
[2021-02-17] MEDS: ASPIRIN 81 MG PO SCH (10:10)
[2021-02-17] MEDS: ATORVASTATIN CA 40 MG PO SCH (10:10)
[2021-02-17] MEDS: TAMSULOSIN HCL 0.4 MG PO SCH (10:10)
[2021-02-17] MEDS: METOPROLOL SUCCINATE 50 MG PO SCH (10:11)
[2021-02-17] MEDS: [UNRECOGNIZED DRUG - OTHER] PO SCH (10:11)
[2021-02-17] MEDS: MV MINS PO SCH (10:11)
[2021-02-17] MEDS: GINKGO PO SCH (10:11)
[2021-02-17] MEDS: LYCOPENE PO SCH (10:11)
[2021-02-17] MEDS: FOLIC ACID 1 MG PO SCH (10:11)
[2021-02-17] MEDS: NICOTINE 14 MG/24 HOURS TOPICAL PATCH TD SCH (10:11)
[2021-02-17] MEDS: FOLIC PO SCH (10:11)
[2021-02-17] MEDS: RAMIPRIL 5 MG PO SCH (10:11)
[2021-02-17] MEDS ORDERED: LORazepam 1 MG TABLET PO PRN (13:00)
[2021-02-17] MEDS: LORazepam 2 MG TABLET PO SCH ×4 (14:50→22:07)
[2021-02-17] MEDS: MELATONIN 5 MG TABLETS PO SCH (22:06)
[2021-02-17] MEDS: THIAMINE HCL 100 MG TABLET (FP) PO SCH (22:06)
[2021-02-18] MEDS: LORazepam 1 MG TABLET PO SCH ×4 (05:34→22:25)
[2021-02-18] MEDS: hydrOXYzine PAMOATE 25 MG CAPSULE (FP) PO SCH ×5 (05:35→22:24)
[2021-02-18] MEDS: MAG HYDROX/AL HYDROX/SIMETH 30 ML UNIT-DOSE CUP PO PRN ×2 (05:35→19:26)
[2021-02-18] MEDS ORDERED: diazePAM 5 MG TABLET PO SCH (06:00)
[2021-02-18] MEDS: TAMSULOSIN HCL 0.4 MG PO SCH (08:22)
[2021-02-18] MEDS: GINKGO PO SCH (10:35)
[2021-02-18] MEDS: FOLIC PO SCH (10:35)
[2021-02-18] MEDS: LYCOPENE PO SCH (10:35)
[2021-02-18] MEDS: FOLIC ACID 1 MG PO SCH (10:35)
[2021-02-18] MEDS: ASPIRIN 81 MG PO SCH (10:35)
[2021-02-18] MEDS: MV MINS PO SCH (10:35)
[2021-02-18] MEDS: METOPROLOL SUCCINATE 50 MG PO SCH (10:35)
[2021-02-18] MEDS: ATORVASTATIN CA 40 MG PO SCH (10:35)
[2021-02-18] MEDS: [UNRECOGNIZED DRUG - OTHER] PO SCH (10:35)
[2021-02-18] MEDS: NICOTINE 14 MG/24 HOURS TOPICAL PATCH TD SCH (10:36)
[2021-02-18] MEDS: RAMIPRIL 5 MG PO SCH (10:36)
[2021-02-18] MEDS: THIAMINE HCL 100 MG TABLET (FP) PO SCH (22:25)
[2021-02-18] MEDS: MELATONIN 5 MG TABLETS PO SCH (22:25)
[2021-02-19] MEDS ORDERED: LORazepam 0.5 MG TABLET PO PRN
[2021-02-19] MEDS: MAGNESIUM HYDROX 2400MG/30ML ORAL SUSPENSION 30 ML CUP PO PRN ×2 (03:16→16:06)
[2021-02-19] MEDS: LORazepam 0.5 MG TABLET PO SCH ×4 (05:53→22:22)
[2021-02-19] MEDS: hydrOXYzine PAMOATE 25 MG CAPSULE (FP) PO SCH ×5 (05:57→22:22)
[2021-02-19] MEDS ORDERED: diazePAM 5 MG TABLET PO SCH (06:00)
[2021-02-19] MEDS: TAMSULOSIN HCL 0.4 MG PO SCH (10:02)
[2021-02-19] MEDS: METOPROLOL SUCCINATE 50 MG PO SCH (10:02)
[2021-02-19] MEDS: LYCOPENE PO SCH (10:03)
[2021-02-19] MEDS: [UNRECOGNIZED DRUG - OTHER] PO SCH (10:03)
[2021-02-19] MEDS: RAMIPRIL 5 MG PO SCH (10:03)
[2021-02-19] MEDS: MV MINS PO SCH (10:03)
[2021-02-19] MEDS: GINKGO PO SCH (10:03)
[2021-02-19] MEDS: FOLIC PO SCH (10:03)
[2021-02-19] MEDS: ASPIRIN 81 MG PO SCH (10:03)
[2021-02-19] MEDS: ATORVASTATIN CA 40 MG PO SCH (10:04)
[2021-02-19] MEDS: FOLIC ACID 1 MG PO SCH (10:04)
[2021-02-19] MEDS: NICOTINE 14 MG/24 HOURS TOPICAL PATCH TD SCH (10:05)
[2021-02-19 10:09] LABS: SGOT/AST 88 U/L (15-37); SGPT/ALT 103 U/L (13-61)
[2021-02-19] MEDS: THIAMINE HCL 100 MG TABLET (FP) PO SCH (22:22)
[2021-02-19] MEDS: MELATONIN 5 MG TABLETS PO SCH (22:22)
[2021-02-20] MEDS: MAG HYDROX/AL HYDROX/SIMETH 30 ML UNIT-DOSE CUP PO PRN (00:29)
[2021-02-20] MEDS ORDERED: LORazepam 0.5 MG TABLET PO ONE (05:00)
[2021-02-20] MEDS: hydrOXYzine PAMOATE 25 MG CAPSULE (FP) PO SCH ×2 (05:28→09:58)
[2021-02-20] MEDS ORDERED: diazePAM 5 MG TABLET PO ONE (06:00)
[2021-02-20] MEDS: TAMSULOSIN HCL 0.4 MG PO SCH (08:16)
[2021-02-20 09:47] VITALS: BP 99/73; PULSE 98; TEMP 98.1
[2021-02-20] MEDS: ASPIRIN 81 MG PO SCH (09:57)
[2021-02-20] MEDS: FOLIC ACID 1 MG PO SCH (09:57)
[2021-02-20] MEDS: ATORVASTATIN CA 40 MG PO SCH (09:57)
[2021-02-20] MEDS: FOLIC PO SCH (09:58)
[2021-02-20] MEDS: NICOTINE 14 MG/24 HOURS TOPICAL PATCH TD SCH (09:58)
[2021-02-20] MEDS: MV MINS PO SCH (09:58)
[2021-02-20] MEDS: METOPROLOL SUCCINATE 50 MG PO SCH (09:58)
[2021-02-20] MEDS: LYCOPENE PO SCH (09:58)
[2021-02-20] MEDS: [UNRECOGNIZED DRUG - OTHER] PO SCH (09:58)
[2021-02-20] MEDS: GINKGO PO SCH (09:58)
[2021-02-20] MEDS: RAMIPRIL 5 MG PO SCH (09:58)
== END 2021-02-20 09:36 | disposition home or self-care (01) | DRG 775 ==
LOC: YASAS 08:40 → Y6N 10:00
PROVIDERS: ADMIT Allergy & Immunology; ATTEND Allergy & Immunology
PROC: HZ2ZZZZ Detoxification Services for Substance Abuse Treatment (ICD-10-PCS; principal; 2021-02-16)
DX: F10.230 Alcohol dependence with withdrawal, uncomplicated (principal); F41.9 Anxiety disorder, unspecified; E78.00 Pure hypercholesterolemia, unspecified; I25.10 Atherosclerotic heart disease of native coronary artery without angina pectoris; I10 Essential (primary) hypertension; I25.2 Old myocardial infarction; K21.9 Gastro-esophageal reflux disease without esophagitis; N40.0 Benign prostatic hyperplasia without lower urinary tract symptoms; R74.01 Elevation of levels of liver transaminase levels
CPT/HCPCS: 36415; 80053; 84450; 84460; 85027; 86780; C9803; Q0162; U0003; U0005

== ENCOUNTER 2021-09-25 12:32 | Inpatient (IN) | payer OTHER ==
[2021-09-25 12:52] VITALS: BMI 31.0
[2021-09-25] MEDS ORDERED: IBUPROFEN 400 MG TABLET (FP) PO PRN (15:58)
[2021-09-25] MEDS ORDERED: DICYCLOMINE HCL 10 MG CAPSULE PO PRN (15:58)
[2021-09-25] MEDS ORDERED: MAGNESIUM CITRATE 300 ML BOTTLE PO PRN (15:58)
[2021-09-25] MEDS ORDERED: LORazepam 1 MG TABLET PO PRN (15:58)
[2021-09-25] MEDS ORDERED: BISMUTH SUBSALICYLATE 524 MG/30 ML PO PRN (15:58)
[2021-09-25] MEDS ORDERED: LOPERAMIDE HCL 2 MG CAPSULE PO PRN (15:58)
[2021-09-25] MEDS ORDERED: MAG HYDROX/AL HYDROX/SIMETH 30 ML UNIT-DOSE CUP PO PRN (15:58)
[2021-09-25] MEDS ORDERED: BENZOCAINE/MENTHOL (CHLORASEPTIC ) LOZENGE MM PRN (15:58)
[2021-09-25] MEDS ORDERED: MAGNESIUM HYDROX 2400MG/30ML ORAL SUSPENSION 30 ML CUP PO PRN (15:58)
[2021-09-25] MEDS ORDERED: IBUPROFEN 600 MG TABLET (FP) PO PRN (15:58)
[2021-09-25] MEDS ORDERED: NICOTINE 10 MG CARTRIDGE (INHALER) IH PRN (15:58)
[2021-09-25] MEDS ORDERED: ACETAMINOPHEN 325 MG TABLET (FP) PO PRN ×2 (15:58)
[2021-09-25] MEDS ORDERED: LORazepam 2 MG TABLET ONE (16:16)
[2021-09-25] MEDS: LORazepam 2 MG TABLET PO SCH ×2 (16:19→23:33)
[2021-09-25] MEDS: hydrOXYzine PAMOATE 25 MG CAPSULE (FP) PO SCH ×2 (18:57→23:40)
[2021-09-25] MEDS: PANTOPRAZOLE 20 MG TABLET PO SCH (18:57)
[2021-09-25] MEDS: TAMSULOSIN HCL 0.4 MG CAP PO SCH (18:57)
[2021-09-25] MEDS: PRENATAL VITAMINS W/ FOLIC ACID TABLET (FP) PO SCH (18:57)
[2021-09-25] MEDS: THIAMINE HCL 100 MG TABLET (FP) PO SCH (23:33)
[2021-09-25] MEDS: MELATONIN 5 MG TABLETS PO SCH (23:34)
[2021-09-25] MEDS: RAMIPRIL 5 MG CAPSULE PO SCH (23:50)
[2021-09-26] MEDS: hydrOXYzine PAMOATE 25 MG CAPSULE (FP) PO SCH ×5 (05:13→22:31)
[2021-09-26] MEDS: LORazepam 2 MG TABLET PO SCH ×4 (05:13→22:31)
[2021-09-26] MEDS: TAMSULOSIN HCL 0.4 MG CAP PO SCH (11:05)
[2021-09-26] MEDS: PRENATAL VITAMINS W/ FOLIC ACID TABLET (FP) PO SCH (11:05)
[2021-09-26] MEDS: PANTOPRAZOLE 20 MG TABLET PO SCH (11:06)
[2021-09-26] MEDS: ASPIRIN COATED 81 MG TABLET.EC PO SCH (11:06)
[2021-09-26] MEDS: RAMIPRIL 5 MG CAPSULE PO SCH (11:38)
[2021-09-26] MEDS: ATORVASTATIN CA 40 MG TABLET (FP) PO SCH (11:38)
[2021-09-26 14:24] LABS: CALCIUM 9.1 mg/dL (8.5-10.1)
[2021-09-26 14:26] LABS: ALBUMIN 3.1 g/dl (3.4-5.0); BLOOD UREA NITROGEN 10.4 mg/dL (7-18)
[2021-09-26 14:27] LABS: HEMATOCRIT 36.6 % (35.4-49); HEMOGLOBIN 12.4 GM/dL (11.7-16.9); MCH 32.6 pg (25.7-33.7); PLATELET COUNT 177 10^3/uL (134-434); RBC 3.81 M/mm3 (4.00-5.60); RDW 14.1 % (11.9-15.9); WHITE BLOOD COUNT 2.7 K/mm3 (4.0-10.0)
[2021-09-26 14:28] LABS: CREATININE 0.9 mg/dL (0.55-1.3)
[2021-09-26 14:29] LABS: TOT PROT 5.6 g/dl (6.4-8.2)
[2021-09-26] MEDS: ONDANSETRON *ODT* 4 MG TABLET SL PRN (17:48)
[2021-09-26] MEDS: METHOCARBAMOL 500 MG TABLET PO PRN (22:31)
[2021-09-26] MEDS: MELATONIN 5 MG TABLETS PO SCH (22:31)
[2021-09-26] MEDS: THIAMINE HCL 100 MG TABLET (FP) PO SCH (22:31)
[2021-09-27] MEDS: LORazepam 1 MG TABLET PO SCH ×4 (04:58→22:08)
[2021-09-27] MEDS: hydrOXYzine PAMOATE 25 MG CAPSULE (FP) PO SCH ×5 (04:59→22:08)
[2021-09-27] MEDS: PRENATAL VITAMINS W/ FOLIC ACID TABLET (FP) PO SCH (10:49)
[2021-09-27] MEDS: TAMSULOSIN HCL 0.4 MG CAP PO SCH (10:53)
[2021-09-27] MEDS: METHOCARBAMOL 500 MG TABLET PO PRN (10:53)
[2021-09-27] MEDS: ATORVASTATIN CA 40 MG TABLET (FP) PO SCH (10:53)
[2021-09-27] MEDS: ASPIRIN COATED 81 MG TABLET.EC PO SCH (10:53)
[2021-09-27] MEDS: PANTOPRAZOLE 20 MG TABLET PO SCH (10:54)
[2021-09-27] MEDS: RAMIPRIL 5 MG CAPSULE PO SCH (11:03)
[2021-09-27] MEDS ORDERED: POTASSIUM CHLORIDE ORAL LIQUID 20 MEQ/15 ML PO ONE (14:48)
[2021-09-27] MEDS: ONDANSETRON *ODT* 4 MG TABLET SL PRN (18:37)
[2021-09-27] MEDS: POTASSIUM CHLORIDE ORAL LIQUID 20 MEQ/15 ML PO SCH (22:08)
[2021-09-27] MEDS: THIAMINE HCL 100 MG TABLET (FP) PO SCH (22:08)
[2021-09-27] MEDS: MELATONIN 5 MG TABLETS PO SCH (22:09)
[2021-09-28] MEDS ORDERED: LORazepam 0.5 MG TABLET PO PRN
[2021-09-28] MEDS: hydrOXYzine PAMOATE 25 MG CAPSULE (FP) PO SCH ×5 (05:27→22:45)
[2021-09-28] MEDS: LORazepam 0.5 MG TABLET PO SCH ×4 (05:27→22:45)
[2021-09-28] MEDS: POTASSIUM CHLORIDE ORAL LIQUID 20 MEQ/15 ML PO SCH ×2 (10:16→22:45)
[2021-09-28] MEDS: PRENATAL VITAMINS W/ FOLIC ACID TABLET (FP) PO SCH (10:16)
[2021-09-28] MEDS: ASPIRIN COATED 81 MG TABLET.EC PO SCH (10:16)
[2021-09-28] MEDS: RAMIPRIL 5 MG CAPSULE PO SCH (10:17)
[2021-09-28] MEDS: PANTOPRAZOLE 20 MG TABLET PO SCH (10:17)
[2021-09-28] MEDS: ATORVASTATIN CA 40 MG TABLET (FP) PO SCH (10:17)
[2021-09-28] MEDS: TAMSULOSIN HCL 0.4 MG CAP PO SCH (10:17)
[2021-09-28] MEDS: THIAMINE HCL 100 MG TABLET (FP) PO SCH (22:45)
[2021-09-28] MEDS: MELATONIN 5 MG TABLETS PO SCH (22:47)
[2021-09-29] MEDS ORDERED: LORazepam 0.5 MG TABLET PO ONE ×2 (05:00→09:45)
[2021-09-29] MEDS: hydrOXYzine PAMOATE 25 MG CAPSULE (FP) PO SCH ×2 (05:36→09:57)
[2021-09-29 09:27] VITALS: BP 121/84; PULSE 88; TEMP 97.1
[2021-09-29] MEDS: PANTOPRAZOLE 20 MG TABLET PO SCH (09:57)
[2021-09-29] MEDS: ASPIRIN COATED 81 MG TABLET.EC PO SCH (09:57)
[2021-09-29] MEDS: METHOCARBAMOL 500 MG TABLET PO PRN (09:57)
[2021-09-29] MEDS: ATORVASTATIN CA 40 MG TABLET (FP) PO SCH (09:57)
[2021-09-29] MEDS: RAMIPRIL 5 MG CAPSULE PO SCH (09:57)
[2021-09-29] MEDS: TAMSULOSIN HCL 0.4 MG CAP PO SCH (09:57)
[2021-09-29] MEDS: PRENATAL VITAMINS W/ FOLIC ACID TABLET (FP) PO SCH (09:58)
== END 2021-09-29 10:00 | disposition home or self-care (01) | DRG 897 ==
LOC: YASAS 12:32 → Y6N 17:22
PROVIDERS: ADMIT Allergy & Immunology; ATTEND Surgery
PROC: HZ2ZZZZ Detoxification Services for Substance Abuse Treatment (ICD-10-PCS; principal; 2021-09-25)
DX: F10.230 Alcohol dependence with withdrawal, uncomplicated (principal); E87.6 Hypokalemia; E78.5 Hyperlipidemia, unspecified; I25.10 Atherosclerotic heart disease of native coronary artery without angina pectoris; I10 Essential (primary) hypertension; N40.0 Benign prostatic hyperplasia without lower urinary tract symptoms
CPT/HCPCS: 36415; 80053; 84132; 85027; 86780; C9803-CS; Q0162; U0003; U0005

== ENCOUNTER 2021-10-21 14:44 | Inpatient (IN) | payer OTHER ==
[2021-10-21] MEDS ORDERED: DICYCLOMINE HCL 10 MG CAPSULE PO PRN (17:55)
[2021-10-21] MEDS ORDERED: LORazepam 1 MG TABLET PO PRN (17:55)
[2021-10-21] MEDS ORDERED: IBUPROFEN 600 MG TABLET (FP) PO PRN (17:55)
[2021-10-21] MEDS ORDERED: LOPERAMIDE HCL 2 MG CAPSULE PO PRN (17:55)
[2021-10-21] MEDS ORDERED: ONDANSETRON *ODT* 4 MG TABLET SL PRN (17:55)
[2021-10-21] MEDS ORDERED: MAGNESIUM CITRATE 300 ML BOTTLE PO PRN (17:55)
[2021-10-21] MEDS ORDERED: BISMUTH SUBSALICYLATE 524 MG/30 ML PO PRN (17:55)
[2021-10-21] MEDS ORDERED: MAGNESIUM HYDROX 2400MG/30ML ORAL SUSPENSION 30 ML CUP PO PRN (17:55)
[2021-10-21] MEDS ORDERED: BENZOCAINE/MENTHOL (CHLORASEPTIC ) LOZENGE MM PRN (17:55)
[2021-10-21] MEDS ORDERED: NICOTINE 10 MG CARTRIDGE (INHALER) IH PRN (17:55)
[2021-10-21] MEDS ORDERED: ACETAMINOPHEN 325 MG TABLET (FP) PO PRN ×2 (17:55)
[2021-10-21 19:42] VITALS: BMI 30.8
[2021-10-21] MEDS: hydrOXYzine PAMOATE 25 MG CAPSULE (FP) PO SCH ×2 (21:02→22:38)
[2021-10-21] MEDS: ATORVASTATIN CA 40 MG TABLET (FP) PO SCH (22:37)
[2021-10-21] MEDS: LORazepam 2 MG TABLET PO SCH (22:38)
[2021-10-21] MEDS: MELATONIN 5 MG TABLETS PO SCH (22:38)
[2021-10-21] MEDS: THIAMINE HCL 100 MG TABLET (FP) PO SCH (22:38)
[2021-10-22] MEDS: METHOCARBAMOL 500 MG TABLET PO PRN ×3 (03:51→22:18)
[2021-10-22] MEDS: IBUPROFEN 400 MG TABLET (FP) PO PRN ×2 (03:51→10:40)
[2021-10-22] MEDS: hydrOXYzine PAMOATE 25 MG CAPSULE (FP) PO SCH ×5 (05:49→22:55)
[2021-10-22] MEDS: LORazepam 2 MG TABLET PO SCH ×4 (05:49→22:13)
[2021-10-22] MEDS: TAMSULOSIN HCL 0.4 MG CAP PO SCH (10:36)
[2021-10-22] MEDS: PRENATAL VITAMINS W/ FOLIC ACID TABLET (FP) PO SCH (10:36)
[2021-10-22] MEDS: ASPIRIN COATED 81 MG TABLET.EC PO SCH (10:37)
[2021-10-22] MEDS: RAMIPRIL 5 MG CAPSULE PO SCH (12:33)
[2021-10-22] MEDS: ATORVASTATIN CA 40 MG TABLET (FP) PO SCH (22:13)
[2021-10-22] MEDS: THIAMINE HCL 100 MG TABLET (FP) PO SCH (22:13)
[2021-10-22] MEDS: MELATONIN 5 MG TABLETS PO SCH (22:14)
[2021-10-22] MEDS: MAG HYDROX/AL HYDROX/SIMETH 30 ML UNIT-DOSE CUP PO PRN (22:55)
[2021-10-23] MEDS: hydrOXYzine PAMOATE 25 MG CAPSULE (FP) PO SCH ×5 (05:37→22:18)
[2021-10-23] MEDS: LORazepam 1 MG TABLET PO SCH ×4 (05:37→22:18)
[2021-10-23] MEDS: TAMSULOSIN HCL 0.4 MG CAP PO SCH (07:47)
[2021-10-23] MEDS: ASPIRIN COATED 81 MG TABLET.EC PO SCH (10:17)
[2021-10-23] MEDS: RAMIPRIL 5 MG CAPSULE PO SCH (10:17)
[2021-10-23] MEDS: PRENATAL VITAMINS W/ FOLIC ACID TABLET (FP) PO SCH (10:17)
[2021-10-23] MEDS: MAG HYDROX/AL HYDROX/SIMETH 30 ML UNIT-DOSE CUP PO PRN (13:08)
[2021-10-23] MEDS: THIAMINE HCL 100 MG TABLET (FP) PO SCH (22:18)
[2021-10-23] MEDS: MELATONIN 5 MG TABLETS PO SCH (22:18)
[2021-10-23] MEDS: ATORVASTATIN CA 40 MG TABLET (FP) PO SCH (22:18)
[2021-10-24] MEDS ORDERED: LORazepam 0.5 MG TABLET PO PRN
[2021-10-24] MEDS: MAG HYDROX/AL HYDROX/SIMETH 30 ML UNIT-DOSE CUP PO PRN ×2 (02:16→14:27)
[2021-10-24] MEDS: hydrOXYzine PAMOATE 25 MG CAPSULE (FP) PO SCH ×5 (06:09→22:39)
[2021-10-24] MEDS: LORazepam 0.5 MG TABLET PO SCH ×4 (06:10→22:39)
[2021-10-24] MEDS: ASPIRIN COATED 81 MG TABLET.EC PO SCH (10:06)
[2021-10-24] MEDS: TAMSULOSIN HCL 0.4 MG CAP PO SCH (10:06)
[2021-10-24] MEDS: METHOCARBAMOL 500 MG TABLET PO PRN (10:06)
[2021-10-24] MEDS: RAMIPRIL 5 MG CAPSULE PO SCH (10:07)
[2021-10-24] MEDS: PRENATAL VITAMINS W/ FOLIC ACID TABLET (FP) PO SCH (10:08)
[2021-10-24 12:12] LABS: CALCIUM 8.7 mg/dL (8.5-10.1)
[2021-10-24 12:13] LABS: BLOOD UREA NITROGEN 12.5 mg/dL (7-18)
[2021-10-24 12:14] LABS: CREATININE 0.7 mg/dL (0.55-1.3)
[2021-10-24 12:18] LABS: BILIRUBIN,TOTAL 0.9 mg/dL (0.2-1); TOT PROT 5.5 g/dl (6.4-8.2)
[2021-10-24 12:20] LABS: HEMATOCRIT 35.4 % (35.4-49); MCH 32.6 pg (25.7-33.7); MCHC 33.9 g/dl (32.0-35.9); MEAN CELL VOLUME 96.2 fl (80-96); MEAN PLT VOLUME 8.3 fl (7.5-11.1); PLATELET COUNT 133 10^3/uL (134-434); RBC 3.68 M/mm3 (4.00-5.60); RDW 13.9 % (11.9-15.9); WHITE BLOOD COUNT 2.9 K/mm3 (4.0-10.0)
[2021-10-24 12:32] LABS: INR 1.02 (0.83-1.09); PROTHROMBIN TIME (PATIENT) 11.7 SEC (9.7-13.0)
[2021-10-24 12:35] LABS: ACTIVATED PTT 29.1 SECONDS (25.2-36.5)
[2021-10-24] MEDS: ATORVASTATIN CA 40 MG TABLET (FP) PO SCH (22:38)
[2021-10-24] MEDS: THIAMINE HCL 100 MG TABLET (FP) PO SCH (22:39)
[2021-10-24] MEDS: MELATONIN 5 MG TABLETS PO SCH (22:39)
[2021-10-25] MEDS ORDERED: LORazepam 0.5 MG TABLET PO ONE (05:00)
[2021-10-25] MEDS: hydrOXYzine PAMOATE 25 MG CAPSULE (FP) PO SCH ×2 (05:54→09:34)
[2021-10-25] MEDS: TAMSULOSIN HCL 0.4 MG CAP PO SCH (07:37)
[2021-10-25] MEDS: RAMIPRIL 5 MG CAPSULE PO SCH (09:34)
[2021-10-25] MEDS: METHOCARBAMOL 500 MG TABLET PO PRN (09:34)
[2021-10-25] MEDS: ASPIRIN COATED 81 MG TABLET.EC PO SCH (09:34)
[2021-10-25] MEDS: PRENATAL VITAMINS W/ FOLIC ACID TABLET (FP) PO SCH (09:34)
[2021-10-25 09:48] VITALS: BP 110/68; PULSE 79; TEMP 97.4
[2021-10-25] MEDS: MAG HYDROX/AL HYDROX/SIMETH 30 ML UNIT-DOSE CUP PO PRN (11:48)
== END 2021-10-25 12:19 | disposition home or self-care (01) | DRG 897 ==
LOC: YASAS 14:44 → Y6N 19:08
PROVIDERS: ADMIT Allergy & Immunology; ATTEND Surgery
PROC: HZ2ZZZZ Detoxification Services for Substance Abuse Treatment (ICD-10-PCS; principal; 2021-10-21)
PROC: HZ2ZZZZ Detoxification Services for Substance Abuse Treatment (ICD-10-PCS; 2021-10-21)
DX: F10.230 Alcohol dependence with withdrawal, uncomplicated (principal); F10.24 Alcohol dependence with alcohol-induced mood disorder; F41.9 Anxiety disorder, unspecified; E78.5 Hyperlipidemia, unspecified; I25.10 Atherosclerotic heart disease of native coronary artery without angina pectoris; I10 Essential (primary) hypertension; I25.2 Old myocardial infarction; K21.9 Gastro-esophageal reflux disease without esophagitis; N40.0 Benign prostatic hyperplasia without lower urinary tract symptoms; Z20.822 Contact with and (suspected) exposure to COVID-19; W19.XXXA Unspecified fall, initial encounter; Y93.89 Activity, other specified; Y92.231 Patient bathroom in hospital as the place of occurrence of the external cause; Z91.81 History of falling
CPT/HCPCS: 36415; 80053; 85027; 85610; 85730; 86780; 93005; 93010; C9803-CS; U0003; U0005